=== PATIENT | male | born 1960 | race Caucasian/White ===

== ENCOUNTER 2016-06-06 19:45 | Emergency (ER) | payer MEDICARE, MEDICAID ==
[~2016-06-06 19:45] MED LIST: COGENTIN DPS2 MG PO; GLIPIZIDE5 MG PO; GLUCOPHAGE-DPS500 MG PO; LISINOPRIL5 MG PO; MAG-OX400 MG PO; METOPROLOL ER PO; OMEPRAZOLE20 M1 PO; PRAVASTATIN PO; SEROQUEL DPS300 MG PO; SYNTHROID DPS0.1 MG PO; TYLENOL325 MG PO; VERAPAMIL PO
== END 2016-06-06 21:40 | disposition left against medical advice (07) ==
LOC: ER 19:45
DX: Z53.21 Procedure and treatment not carried out due to patient leaving prior to being seen by health care provider (principal)